=== PATIENT | female | born 1990 | race Caucasian/White ===

== ENCOUNTER 2024-06-21 14:34 | Emergency (ER) | payer OTHER, SELFPAY ==
--- NOTE | ~2024-06-21 | CT_ITS ---
EXAMINATION: CT abdomen pelvis w con DATE: 06/21/2024 18:01 INDICATION: right mid-abdominal tenderness TECHNIQUE: Computed tomography (CT) of the abdomen and pelvis was performed with 100 mL Omnipaque-350 intravenous contrast. Automated exposure control and iterative reconstruction technique were employe d. The dose-length product was 1465.88 mGy-cm. COMPARISON: None. FINDINGS: Lower thorax: Unremarkable Liver: Diffusely low-density parenchyma. Biliary/Gallbladder: Gallbladder is absent. No bile duct dilation. Pancreas: No mass or duct dilation. Spleen: Normal. Adrenals:No mass. Kidneys: No suspicious mass, obstructing stone, or hydronephrosis. GI tract: No small or large bowel dilation. Normal appendix. Mesentery/Peritoneum: No mass or free air. Small volume fluid in the lower abdominal mesentery. Retroperitoneum: No mass. Pelvis: Pelvic organs are within normal limits. Small volume free pelvic fluid, within physiologic li mits. Soft Tissues: Soft tissues and body wall unremarkable. Bones: No acute osseous finding. IMPRESSION: Hepatic steatosis. Small volume inferior abdominal mesenteric ascites. Otherwise no acute abdominopelvic process detected. Reviewed, dictated and finalized at location K.
[2024-06-21 14:36] VITALS: BP 127/88; PULSE 100; RESP 16; TEMP 36.7; O2SAT 95
[2024-06-21] MEDS: ONDANSETRON INJ 4 MG/2 ML VIAL IV PUSH (15:20)
[2024-06-21] MEDS: MORPHINE SULFATE (*CRX) 4 MG/ML INJ IV PUSH (15:20)
[2024-06-21] MEDS: SODIUM CHLORIDE 0.9% IV 1,000 ML 999 ML IV CONT (15:21)
[2024-06-21 15:22] LABS: Basophils Percent Auto 0.5 % (0.2-1.2); Eosinophils Absolute Auto 0.1 K/mm3 (0-0.3); Eosinophils Percent Auto 1.3 % (0-4.4); Hematocrit 50.2 % (37.0-47.0); Hemoglobin 17.1 g/dL (12.0-15.0); Immature Granulocyte Absolute 0.03 K/mm3 (0.00-0.031); Immature Granulocyte Percent A 0.3 % (0-0.5); Lymphocytes Absolute Auto 3.39 K/mm3 (0.9-3.2); Lymphocytes Percent Auto 39.2 % (18.3-44.2); Mean Corpuscular HGB Conc 34.1 g/dl (32-36); Mean Corpuscular Hemoglobin 31.4 pg (26-34); Mean Corpuscular Volume 92.1 fl (80-100); Mean Platelet Volume 9.3 fl (7.4-10.4); Monocytes Absolute Auto 0.6 K/mm3 (0.1-0.6); Monocytes Percent Auto 7.4 % (2.6-8.5); Neutrophils Absolute Auto 4.4 K/mm3 (1.3-6.7); Neutrophils Percent Auto 51.3 % (45.5-73.1); Platelet Count Result 433 k/mm3 (150-375); Red Blood Count 5.45 M/mm3 (4.2-5.4); Red Cell Distribution Width 13.2 % (11.5-14.5); White Blood Count 8.6 K/mm3 (4.5-10.0)
--- NOTE | 2024-06-21 15:30 | PC.NURSE ---
Pt attempted urine specimen but could not provide.
[2024-06-21 15:41] LABS: Alanine Aminotransferase 34 U/L (6-35); Albumin Level 4.5 g/dL (3.5-5.1); Alkaline Phosphatase 54 U/L (38-126); Anion Gap 11 mmol/L (4-12); Aspartate Amino Transferase 29 U/L (14-36); Bilirubin,Total 0.7 mg/dL (0.2-1.3); Blood Urea Nitrogen 14 mg/dL (7-17); Calcium 9.4 mg/dL (8.4-10.2); Carbon Dioxide 25 mmol/L (22-30); Chloride 103 mmol/L (98-107); Estimated CRCL calculation 92 ml/min; Estimated Glomerular Filt Rate > 60; Glucose 115 mg/dL (65-110); Lipase 182 U/L (23-300); Potassium 3.8 mmol/L (3.4-5.0); Sodium 139 mmol/L (137-145)
[2024-06-21 16:50] LABS: Add Urine Microscopic? YES; Appearance Urine Cloudy (Clear); Bacteria Urine 2+ /hpf; Bilirubin Urine Negative (Negative); Blood Urine Negative (Negative); Color Urine Dark Yellow (Yellow); Glucose Urine UA Negative (Negative); Ketones Urine Trace mg/dL (Negative); Leukocyte Esterase Ur 1+ LEU/UL (Negative); Mucus Urine Present /lpf; Need Manual Microscopic Reviewed; Nitrate Urine Negative (Negative); Protein Urine 1+ mg/dL (Negative); Squamous Epithelial Cell Urine Moderate /hpf (Few)
[2024-06-21 16:52] LABS: Prothrombin Time 13.9 Seconds (11.1-14.7)
[2024-06-21 16:53] LABS: Partial Thromboplastin Time 23.3 Seconds (22.3-36.8)
[2024-06-21 17:14] LABS: BEDSIDEPREGUCG Negative
--- NOTE | 2024-06-21 17:25 | ED.GENADULT ---
HPI - General Adult General Chief complaint: Abdominal Pain Stated complaint: abdominal pain, hr 150s Time Seen by Provider: 06/21/24 14:44 History of Present Illness HPI narrative: Patient is a 33-year-old female who presents to the ER with abdominal pain. Sudden onset 1 hour prior to arrival. Associated with 1 episode of diarrhea. Began epigastrium moved to the right side. No urinary frequency urgency or dysuria. No known sick contacts. No aggravating or alleviating factors. Related Data Allergies Allergy/AdvReac Type Severity Reaction Status Date / Time amoxicillin [From Augmentin] Allergy Hives Verified 06/21/24 15:16 clavulanic acid Allergy Hives Verified 06/21/24 15:16 [From Augmentin] shellfish derived Allergy vomitting Verified 06/21/24 15:16 Review of Systems Review of Systems: All systems reviewed & are unremarkable except as noted in HPI and below Constitutional: Constitutional: Reports no additional constitutional complaints Cardiovascular: Cardiovascular: Reports no additional cardiovascular complaints Respiratory: Respiratory: Reports no additional respiratory complaints Gastrointestinal: Gastrointestinal: Reports abdominal pain, Reports diarrhea, Denies nausea and Denies vomiting Genitourinary: Genitourinary: Reports no additional female genitourinary complaints Musculoskeletal: Musculoskeletal: Reports no additional musculoskeletal complaints PMFSH Past Medical History Medical History (Updated 06/21/24 @ 18:27 by Dean Velazquez MD) Anxiety Surgical History Surgical History (Updated 06/21/24 @ 17:33 by Dean Velazquez MD) No history of previous surgery Exam Narrative: GENERAL: Well-appearing, well-nourished, and in no acute distress. HEAD: Normocephalic, atraumatic. ENT: Mucous membranes moist. CHEST: Clear to auscultation. No respiratory distress. HEART: Regular rate and rhythm. Normal peripheral pulses. ABDOMEN: Soft, mild tenderness the guarding right mid to upper quadrant of the abdomen, nondistended. EXTREMITIES: Normal range of motion. No edema. SKIN: Warm, dry, no rash. NEURO: Alert and oriented x3. PSYCH: Normal mood and affect. Course Course Emergency Course: Informed of results. Discharge home with supportive care for enteritis. Patient does have mild UTI and will be given cephalexin. Vital Signs Vital signs: Vital Signs Temperature 98.0 F 06/21/24 14:36 Pulse Rate 100 06/21/24 14:36 Respiratory Rate 16 08/22/24 14:36 Blood Pressure 127/88 06/21/24 14:36 Pulse Oximetry 95 06/21/24 14:36 Temperature 98.0 F 06/21/24 14:36 Pulse Rate 80 06/21/24 17:30 Respiratory Rate 14 06/21/24 17:30 Blood Pressure 122/71 06/21/24 17:30 Pulse Oximetry 97 06/21/24 17:30 Medical Decision Making Vital Signs Vital Signs: Vital Signs Temperature 98.0 F 06/21/24 14:36 Pulse Rate 100 06/21/24 14:36 Respiratory Rate 16 06/21/24 14:36 Blood Pressure 127/88 06/21/24 14:36 Pulse Oximetry 95 06/21/24 14:36 Temperature 98.0 F 06/21/24 14:36 Pulse Rate 80 06/21/24 17:30 Respiratory Rate 14 06/21/24 17:30 Blood Pressure 122/71 06/21/24 17:30 Pulse Oximetry 97 06/21/24 17:30 Lab Data 06/21/24 15:14 06/21/24 15:14 Labs: Lab Results 06/21/24 06/21/24 06/21/24 Range/Units 15:14 16:34 17:11 WBC 8.6 (4.5-10.0) K/mm3 RBC 5.45 H (4.2-5.4) M/mm3 Hgb 17.1 H (12.0-15.0) g/dL Hct 50.2 H (37.0-47.0) % MCV 92.1 (80-100) fl MCH 31.4 (26-34) pg MCHC 34.1 (32-36) g/dl RDW 13.2 (11.5-14.5) % Plt Count 433 H (150-375) k/mm3 MPV 9.3 (7.4-10.4) fl Immature Gran % (Auto) 0.3 (0-0.5) % Neut % (Auto) 51.3 (45.5-73.1) % Lymph % (Auto) 39.2 (18.3-44.2) % Emmons % (Auto) 7.4 (2.6-8.5) % Eos % (Auto) 1.3 (0-4.4) % Baso % (Auto) 0.5 (0.2-1.2) % Lymph # (Auto) 3.39 H (0.9-3.2) K/mm3
[2024-06-21 17:30] VITALS: BP 122/71; PULSE 80; RESP 14; O2SAT 97
[2024-06-21 18:42] VITALS: BP 121/68; PULSE 71; RESP 14; O2SAT 97
[2024-06-21 18:44] VITALS: BP 132/78; PULSE 98; RESP 16; TEMP 36.8; O2SAT 98
== END 2024-06-21 18:45 | disposition still patient (30) ==
PROVIDERS: Emergency Provider Emergency Medicine
DX: N39.0 Urinary tract infection, site not specified (principal); K52.9 Noninfective gastroenteritis and colitis, unspecified; K76.0 Fatty (change of) liver, not elsewhere classified
CPT/HCPCS: 36415; 74177; 80053; 81001; 81025; 83690; 85025; 85610; 85730; 87086; 87088; 96361; 96374; 96375; 99284; J2270; J2405; J7030; Q9967